=== PATIENT | male | born 1940 | race Caucasian/White ===

== ENCOUNTER 2018-11-08 08:34 | Day surgery (SDC) | payer MEDICARE, OTHER ==
[~2018-11-08] VITALS: Ht 168.9 cm; Wt 82.9 kg
[2018-11-08] VITALS (11 sets, daily range): BP systolic 116–153; BP diastolic 74–98
[2018-11-08] MEDS ORDERED: nitroGLYCERIN 0.4mg SUBLingual tab SL PRN (08:55)
[2018-11-08] MEDS ORDERED: LORazepam 0.5 MG tablet PO PRN (09:00)
[2018-11-08] MEDS ORDERED: diphenhydrAMINE 25mg capsule PO PRN (09:00)
[2018-11-08] MEDS ORDERED: normal saline 1,000 ML IV SCH (09:00)
[2018-11-08] MEDS ORDERED: ATEN25TA PO (09:22)
[2018-11-08] MEDS ORDERED: OMEG1CAP2 PO (09:22)
[2018-11-08] MEDS ORDERED: LISI1TAB11 PO (09:22)
[2018-11-08] MEDS ORDERED: SIMV20TA5 PO (09:22)
[2018-11-08] MEDS ORDERED: MULT-955 PO (09:22)
[2018-11-08] MEDS ORDERED: SAW450CA7 PO (09:22)
[2018-11-08] MEDS ORDERED: CRAN300T PO (09:22)
[2018-11-08] MEDS ORDERED: ALLO300T8 PO (09:22)
[2018-11-08] MEDS ORDERED: RIVA20TA PO (09:22)
[2018-11-08] MEDS ORDERED: FINA5TAB11 PO (09:22)
[2018-11-08] MEDS ORDERED: CHOL10002 PO (09:22)
[2018-11-08] MEDS ORDERED: OMEP20CA11 PO (09:22)
[2018-11-08] MEDS ORDERED: fentaNYL/PF 50MCG/1 ML 2ML syringe ONE (11:05)
[2018-11-08] MEDS ORDERED: midazolam 2 mg/2 ml injection ONE (11:05)
[2018-11-08] MEDS ORDERED: LIDOcaine 1% 30ml preserv. free vial ONE (11:05)
[2018-11-08] MEDS ORDERED: iohexol 350 MG/ML 50ML vial IV ONE ×2 (11:05→12:00)
[2018-11-08] MEDS ORDERED: iohexol 350MG/ML 100ml bottle IV ONE (11:06)
[2018-11-08] MEDS ORDERED: ondansetron/PF 4mg/2ml inj IV PRN (12:40)
[2018-11-08] MEDS ORDERED: HYDROcodone/acetaminophen 10/325mg tab PO PRN (12:40)
[2018-11-08] MEDS ORDERED: OXAZEpam 15mg capsule PO PRN (12:40)
[2018-11-08] MEDS ORDERED: HYDROcodone/acetaminophen 5mg/325mg tablet PO PRN (12:40)
[2018-11-08] MEDS ORDERED: proCHLORperazine 10 MG/2 ml inj IV PRN (12:40)
--- NOTE | 2018-11-08 13:45 | NUR ---
Patient in room . I have received report from SUSHILA Bullock and had the opportunity to ask questions and assume patient care.
== END 2018-11-08 19:00 | disposition home or self-care (01) ==
LOC: SSTAY O 08:34
PROVIDERS: ATTEND Internal Medicine Cardiovascular Disease
DX: I25.10 Atherosclerotic heart disease of native coronary artery without angina pectoris (principal); I10 Essential (primary) hypertension; E78.5 Hyperlipidemia, unspecified; J44.9 Chronic obstructive pulmonary disease, unspecified; I73.9 Peripheral vascular disease, unspecified; Z87.891 Personal history of nicotine dependence
CPT/HCPCS: 93005; 93458; 99152; 99153; A6257; C1760; C1769; J1644; J2250; J3010; J3490; J7030; Q0163; Q9967; A4620